=== PATIENT | male | born 1945 ===

== ENCOUNTER 2021-05-30 06:28 | Day surgery (SDC) | payer OTHER | END 2021-05-30 16:45 | disposition home or self-care (01) | LOC: CIR.AMB 06:28 → ADM 14:45 → CIR.AMB 16:45 | PROVIDERS: ATTEND Colon & Rectal Surgery | DX: D12.9 Benign neoplasm of anus and anal canal (principal); Z20.822 Contact with and (suspected) exposure to COVID-19 ==